=== PATIENT | female | born 1955 | race Caucasian/White ===

== ENCOUNTER 2022-04-05 12:29 | Emergency (ER) | payer MEDICAID ==
[~2022-04-05] VITALS: Ht 160 cm; Wt 77.1 kg
[2022-04-05] MEDS ORDERED: ACETAMINOPHEN 325MG TABLET PO NR (13:00)
[2022-04-05 13:28] LABS: BASOPHILS % 0.4 % (0.0-2.0); EOSINOPHILS % 0.5 % (0.0-5.0); HEMATOCRIT. 39.2 % (36.0-48.0); HEMOGLOBIN. 13.3 g/dL (12.0-16.0); LYMPHOCYTES % 27.3 % (20.0-50.0); MEAN CORPUSCULAR HEMOGLOBIN 30.4 pg (28.0-32.0); MEAN CORPUSCULAR VOLUME 89.2 fL (81.0-99.0); MEAN PLATELET VOLUME 7.6 fl (7.4-10.4); MONOCYTES % 5.8 % (2.0-8.0); PLATELET 322 x1000/uL (130-400); RED BLOOD CELL COUNT 4.39 mill/uL (4.2-5.4); RED CELL DISTRIBUTION WIDTH 12.8 % (11.6-14.6)
[2022-04-05 14:09] LABS: CHLORIDE 103 mEq/L (98-107)
[2022-04-05 17:00] VITALS: BP 113/69
[2022-04-05] MEDS ORDERED: T3 PO (18:13)
== END 2022-04-05 18:39 | disposition home or self-care (01) ==
LOC: EDBD 12:40 → ER 12:40
DX: U07.1 COVID-19 (principal); S82.402A Unspecified fracture of shaft of left fibula, initial encounter for closed fracture; M97.12XA Periprosthetic fracture around internal prosthetic left knee joint, initial encounter; W22.01XA Walked into wall, initial encounter; Y93.89 Activity, other specified; Y92.89 Other specified places as the place of occurrence of the external cause; Y99.8 Other external cause status
CPT/HCPCS: 36415; 70450; 71045; 73610; 80053; 83880; 85025; 87426; 93005; 99285; C9803

== ENCOUNTER 2023-09-11 22:31 | Inpatient (IN) | payer SELFPAY ==
[~2023-09-11] VITALS: Ht 162.6 cm; Wt 68.0 kg
[~2023-09-11 22:31] MED LIST: T3 PO
[2023-09-11 23:19] LABS: BASOPHILS % 0.6 % (0.0-2.0); HEMATOCRIT. 39.4 % (36.0-48.0); LYMPHOCYTES % 49.2 % (20.0-50.0); MEAN CORPUSCULAR HEMOGLOBIN 30.3 pg (28.0-32.0); MEAN CORPUSCULAR HGB CONC 32.9 g/dL (31.0-37.0); MEAN CORPUSCULAR VOLUME 92.2 fL (81.0-99.0); MEAN PLATELET VOLUME 7.8 fl (7.4-10.4); MONOCYTES % 11.9 % (2.0-8.0); NEUTROPHILS % 37.3 % (40.0-76.0); PLATELET 272 x1000/uL (130-400); RED BLOOD CELL COUNT 4.27 mill/uL (4.2-5.4); RED CELL DISTRIBUTION WIDTH 12.8 % (11.6-14.6); WHITE BLOOD COUNT 4.5 x1000/uL (4.5-11.0)
[2023-09-11 23:27] LABS: PROTHROMBIN TIME 10.3 sec (9.6-11.0)
[2023-09-11 23:34] LABS: ALANINE AMINOTRANSFERASE 17 IU/L (10-49); ALBUMIN 4.2 g/dL (3.2-4.8); ASPARTATE AMINOTRANSFERASE 26 IU/L (<34); BILIRUBIN TOTAL 0.3 mg/dL (0.1-1.0); CALCIUM 8.9 mg/dL (8.7-10.4); CARBON DIOXIDE 30 mEq/L (21-32); CHLORIDE 99 mEq/L (98-107); CREATININE 0.6 mg/dL (0.6-1.0); ETHANOL BLOOD < 10 mg/dL (<10); GLUCOSE 103 mg/dL (70-105); POTASSIUM 3.3 mEq/L (3.5-5.1); SODIUM 133 mEq/L (136-145); TROPONIN I HIGH SENSITIVITY < 4 ng/L (3.0-34); UREA NITROGEN BLOOD 7 mg/dL (9-23)
[2023-09-12 01:10] LABS: CLARITY URINE CLEAR (CLEAR); COLOR URINE YELLOW (YELLOW); GLUCOSE URINE NEGATIVE (NEGATIVE); KETONES URINE NEGATIVE (NEGATIVE); LEUKOCYTE ESTERASE URINE 1+ (NEGATIVE); NITRITE URINE NEGATIVE (NEGATIVE); OCCULT BLOOD URINE NEGATIVE (NEGATIVE); PH URINE 7.5 (4.5-8.0); PROTEIN URINE NEGATIVE (NEGATIVE); SPECIFIC GRAVITY URINE 1.003 (1.005-1.030); UROBILINOGEN URINE 0.2 E.U./dL (0.2-1.0)
[2023-09-12 01:17] LABS: *AMPHETAMINES SCREEN URINE NEGATIVE (NEGATIVE); *BARBITURATES SCREEN URINE NEGATIVE (NEGATIVE); *BENZODIAZEPINES SCREEN URINE NEGATIVE (NEGATIVE); *COCAINE SCREEN URINE NEGATIVE (NEGATIVE); CANNABINOID URINE SCREEN NEGATIVE (NEGATIVE); ECSTASY MDMA SCREEN URINE NEGATIVE (NEGATIVE); METHADONE URINE SCREEN Neg (NEGATIVE); OPIATES URINE SCREEN NEGATIVE (NEGATIVE); PHENCYCLIDINE URINE SCREEN NEGATIVE (NEGATIVE)
[2023-09-12] MEDS ORDERED: POTASSIUM CHLORIDE 20MEQ TABLET SR PO NR (03:30)
[2023-09-12] MEDS ORDERED: DEXT 5%/0.9% NACL 1,000 ML IV ONE (03:30)
[2023-09-12 04:34] LABS: PHOSPHORUS 3.3 mg/dL (2.5-4.9)
[2023-09-12 05:01] LABS: RBC URINE 0-2 /hpf (0-2); SQUAMOUS EPITHELIAL CELL URINE FEW /lpf (RARE/1+); WBC URINE 0-2 /hpf (0-2)
[2023-09-12 05:02] LABS: BACTERIA URINE NONE SEEN
[2023-09-12 05:16] LABS: LACTIC ACID 3.4 mmol/L (0.4-2.0)
[2023-09-12 08:14] VITALS: RESP 14
[2023-09-12 10:21] LABS: CREATINE KINASE 69 IU/L (34-145)
[2023-09-12 10:25] LABS: TROPONIN I HIGH SENSITIVITY < 4 ng/L (3.0-34)
[2023-09-12 11:16] VITALS: BP 110/75; PULSE 70; TEMP 98.2; O2SAT 99
[2023-09-13] MEDS ORDERED: ASPIRIN 81MG TABLET PO SCH (09:00)
== END 2023-09-12 11:00 | disposition home or self-care (01) | DRG 52 ==
LOC: ER 22:31 → MICUSO 09-12 01:49 → UNDOADMIN 09-12 01:49 → 8WST 09-12 01:49 → EDBEDREQSVC 09-12 01:51 → EDBEDREQTM 09-12 01:51 → EDBEDREQ 09-12 01:51 → EDBEDREQDT 09-12 01:51
PROVIDERS: ADMIT Preventive Medicine Clinical Informatics; ATTEND Preventive Medicine Clinical Informatics
DX: G45.4 Transient global amnesia (principal); E87.20 Acidosis, unspecified; F03.90 Unspecified dementia, unspecified severity, without behavioral disturbance, psychotic disturbance, mood disturbance, and anxiety; E87.1 Hypo-osmolality and hyponatremia; Z20.822 Contact with and (suspected) exposure to COVID-19; E87.6 Hypokalemia; R07.89 Other chest pain; Z82.0 Family history of epilepsy and other diseases of the nervous system; Z82.49 Family history of ischemic heart disease and other diseases of the circulatory system
CPT/HCPCS: 36415; 70496; 70498; 71045; 80053; 80305; 80320; 81003; 82550; 83036; 83605; 83735; 84100; 84145; 84484; 85025; 87426; 99285; G0480